=== PATIENT | female | born 1980 | race Caucasian/White ===

== ENCOUNTER 2016-06-11 13:34 | Emergency (ER) | payer MEDICAID ==
[~2016-06-11] VITALS: Ht 170.2 cm; Wt 64.0 kg
[~2016-06-11 13:34] MED LIST: CEPH500C3 PO; ZOVI800T13 PO
[2016-06-11 13:35] VITALS: BP 146/80; PULSE 72; RESP 16; TEMP 97.9; O2SAT 98
[2016-06-11 14:33] VITALS: BP 131/85; PULSE 73; RESP 18; O2SAT 98
[2016-06-11 14:59] LABS: AUTOMATED NEUTROPHIL # 2.9 TH/MM3 (1.8-7.7); BASOPHIL % 0.8 % (0.0-2.0); EOSINOPHIL # 0.1 TH/MM3 (0-0.4); HEMATOCRIT 35.7 % (35.0-46.0); HEMO FLAGS DIFF FINAL; LYMPH % 30.4 % (9.0-44.0); LYMPHOCYTE # 1.6 TH/MM3 (1.0-4.8); MEAN CELL VOLUME 93.7 FL (80.0-100.0); MEAN CORPUSCULAR HEMOGLOBIN 32.5 PG (27.0-34.0); MEAN CORPUSCULAR HGB CONC 34.7 % (32.0-36.0); MONO % 10.7 % (0.0-8.0); NEUT % 56.1 % (16.0-70.0); PLATELET COUNT 191 TH/MM3 (150-450); RED BLOOD COUNT 3.81 MIL/MM3 (4.00-5.30); RED CELL DISTRIBUTION WIDTH 12.9 % (11.6-17.2); WHITE BLOOD COUNT 5.1 TH/MM3 (4.0-11.0)
[2016-06-11 15:02] LABS: BLOOD, URINE SMALL (NEG); COMMENT (UR) CULT NOT INDICATED; CULTURE IF INDICATED CULT NOT INDICATED; GLUCOSE,URINE NEG (NEG); KETONE, URINE NEG (NEG); MUCUS URINE FEW /lpf (OCC); NITRITE,URINE NEG (NEG); PH, URINE 5.5 (5.0-8.5); SQUAMOUS EPITHELIAL CELL URINE 6 /hpf (0-5); URINE COLOR YELLOW (YELLW/STRAW)
--- NOTE | 2016-06-11 15:05 | PD ---
HPI Chief Complaint: Lump, Cyst, Hernia Time Seen by Provider: 14:59 Travel History International Travel<30 days: No Contact w/Intl Traveler<30days: No Traveled to known affect area: No History of Present Illness HPI 35-year-old female that presents to the ED for evaluation of possible hernia to her right side. Per patient she's had some pain and possible lumps to her right lower groin since yesterday. She denies any chest pain or shortness of breath. She denies any other injury. The patient the pain is more with touch. She denies any fevers chills or sweats. She denies any history of recent surgeries to her abdomen at that she has had fallopian tube ligation as well as gallbladder removal. She denies any bowel movement or urinary issues. She has not taken anything for this. She hasn't seen anybody for this. No allergies to medication. Per patient the pain is 6 out of 10. She denies secondary to having tubal ligation. Pain gets worse with touch but improves if no movement or touch is done. PFSH Past Medical History Medical History: Denies Significant Hx Patient Takes Glucophage: No Tetanus Vaccination: > 5 Years Influenza Vaccination: No ?: Not LMP: APRIL 2016 Tubal Ligation: Yes Past Surgical History Cholecystectomy: Yes Social History Alcohol Use: No Tobacco Use: Yes (/2 PPD) Substance Use: Yes Allergies-Medications (Allergen,Severity, Reaction): Coded Allergies: No Known Allergies (Verified , 06/11/16) Reported Meds & Prescriptions Reported Meds & Active Scripts Active No Active Prescriptions or Reported Medications Review of Systems General / Constitutional: No: Fever, Chills, Weight Gain, Weight Loss, Other Eyes: No: Diploplia, Blurred Vision, Photophobia, Drainage, Redness, Foreign Body Sensation, Pain, Tearing, Blind Spots, Visual changes, Blindness, Other HENT: No: Headaches, Vertigo, Lightheadedness, Sore Throat, Rhinitis, Rhinorrhea, Congestion, Nosebleed, Neck Stiffness, Neck Pain, Masses, Gingival Bleeding, Dental Difficulties, Ear Discharge, Earache, Other Cardiovascular: No: Chest Pain or Discomfort, Palpitations, Irregular Rhythm, Tachycardia, Diaphoresis, Syncope, Dyspnea on exertion, Varicosities, Edema, Cyanosis, Varicosities, Phlebitis, Claudication, Other Respiratory: No: Cough, Shortness of Breath, Wheezing, Sneezing, Orthopnea, Hemoptysis, Stridor, Night Sweats, Pleuritic Pain, Other Gastrointestinal: Positive: Other (hernia), No: Nausea, Vomiting, Diarrhea, Abdominal Pain, Hematemesis, Hematochezia, Constipation, Changes in Bowel Habits , Indigestion, Dysphagia, Loss of Appetite Genitourinary: No: Urgency, Frequency, Dysuria, Nocturia, Hematuria, Decreased Urinary Output, Oliguria, Hesitancy, Dribbling, Incontinence, Pelvic Pain, Flank Pain, Dyspareunia, Discharge, Dysmenorrhea, Menorrhagia, Metorrhagia, Vaginal Bleeding, Other Musculoskeletal: No: Myalgias, Arthralgias, Limited ROM, Weakness, Cramping, Edema, Pain, Atrophy, Other Skin: Positive Lumps, Positive Lesions, No Rash, No Itching, No Dryness, No Hives, No Change in Pigmentation, No Change in nails, No Alopecia, No Breast Lumps, No Breast Tenderness, No Breast Swelling, No Other Neurologic: No: Weakness, Dizziness, Syncope, Focal Abnormalities, Coordination Problem, Tremor, Ataxia, Headache, Change in Mentation, Slurred Speech, Paresthesia, Incontinence, Seizures, Sensory Disturbance, Other Psychiatric: No: Anxiety, Depression, Suicidal Ideations, Disorder of Thought, Mood Disorder, Substance Abuse, Homicidal Ideation, Other Endocrine: No: Heat Intolerance, Cold Intolerance, Polyuria, Polydipsia, Other Hematologic/Lymphatic: No: Easy Bruising, Lymph Node Enlargement, Other Physical Exam Narrative GENERAL: SKIN: Warm and dry. HEAD: Atraumatic. Normocephalic. EYES: Pupils equal and round. No scleral icterus. No injection or drainage. ENT: No nasal bleeding or discharge. Mucous membranes pink and moist. Tongue is midline. No uvula deviation. NECK: Trachea midline. No JVD. CARDIOVASCULAR: Regular rate and rhythm. RESPIRATORY: No accessory muscle use. Clear to auscultation. Breath sounds equal bilaterally. GASTROINTESTINAL: Abdomen soft, non-tender, nondistended. Hepatic and splenic margins not palpable. MUSCULOSKELETAL: Extremities without clubbing, cyanosis, or edema. No obvious deformities. Patient was examined with female nurse present. Patient has what appears to be inflamed lymph nodes on the right femoral area. Lungs appear to be mobile and slightly tender and not really reproducible. She does have a big one on the from all area but is not really mobile could be hernia. Skin around the area of the labs as well as on the genital area appears to be intact with no sign of infection. NEUROLOGICAL: Awake and alert. No obvious cranial nerve deficits. Motor grossly within normal limits. Five out of 5 muscle strength in the arms and legs. Normal speech. PSYCHIATRIC: Appropriate mood and affect; insight and judgment normal. Data Data Last Documented VS Vital Signs Date Time Temp Pulse Resp B/P Pulse Ox O2 Delivery O2 Flow Rate FiO2 06/11/16 14:33 73 18 131/85 98 Room Air 06/11/16 13:35 97.9 Orders Complete Blood Count With Diff (06/11/16 14:14) Basic Metabolic Panel (Bmp) (06/11/16 14:14) Urinalysis - C+S If Indicated (06/11/16 14:14) Ed Urine Pregnancytest Poc (06/11/16 14:14) Ct Abd/Pel W Iv Contrast(Rout) (06/11/16 14:25) Iohexol 350 Inj (Omnipaque 350 Inj) (06/11/16 16:04) Labs Laboratory Tests Test 06/11/16 06/11/16 14:30 14:40 Urine Color YELLOW Urine Turbidity HAZY Urine pH 5.5 Urine Specific [place] 1.012 Urine Protein NEG mg/dL Urine Glucose (UA) NEG mg/dL Urine Ketones NEG mg/dL Urine Occult Blood SMALL Urine Nitrite NEG Urine Bilirubin NEG Urine Urobilinogen LESS THAN 2.0 MG/DL Urine Leukocyte Esterase NEG Urine RBC 1 /hpf Urine WBC 4 /hpf Urine Squamous Epithelial 6 /hpf Cells Urine Mucus FEW /lpf Microscopic Urinalysis Comment CULT NOT INDICATED White Blood Count 5.1 TH/MM3 Red Blood Count 3.81 MIL/MM3 Hemoglobin 12.4 GM/DL Hematocrit 35.7 % Mean Corpuscular Volume 93.7 FL Mean Corpuscular Hemoglobin 32.5 PG Mean Corpuscular Hemoglobin 34.7 % Concent Red Cell Distribution Width 12.9 % Platelet Count 191 TH/MM3 Mean Platelet Volume 8.9 FL Neutrophils (%) (Auto) 56.1 % Lymphocytes (%) (Auto) 30.4 % Monocytes (%) (Auto) 10.7 % Eosinophils (%) (Auto) 2.0 % Basophils (%) (Auto) 0.8 % Neutrophils # (Auto) 2.9 TH/MM3 Lymphocytes # (Auto) 1.6 TH/MM3 Monocytes # (Auto) 0.5 TH/MM3 Eosinophils # (Auto) 0.1 TH/MM3 Basophils # (Auto) 0.0 TH/MM3 CBC Comment DIFF FINAL Differential Comment Sodium Level 139 MEQ/L Potassium Level 3.8 MEQ/L Chloride Level 107 MEQ/L Carbon Dioxide Level 27.0 MEQ/L Anion Gap 5 MEQ/L Blood Urea Nitrogen 9 MG/DL Creatinine 0.61 MG/DL Estimat Glomerular Filtration 112 ML/MIN Rate Random Glucose 91 MG/DL Calcium Level 8.6 MG/DL [facility] Medical Decision Making Medical Screen Exam Complete: Yes Emergency Medical Condition: Yes Medical Record Reviewed: Yes Interpretation(s) Last Impressions Abdomen/Pelvis CT 06/11/16 1425 Signed Impressions: Service Date/Time: Saturday, June 11, 2016 15:45 - CONCLUSION: 1. Stranding of fat in the right inguinal region with mildly enlarged lymph node. Findings most characteristic of a mild cellulitis. No inguinal hernia. No acute findings within the abdomen and pelvis. Ronald Vizcaino MD CBC & BMP Diagram 06/11/16 14:40 UA negative Differential Diagnosis Lymphadenopathy versus hernia versus normal exam Narrative Course 35-year-old female that presents to the ED for evaluation of possible hernia. Patient was properly examined and was found to have signs and symptoms which appear to be more consistent with lymphadenopathy but cannot completely rule out small hernia in the femoral area. She does have a lesion that appears to be bigger than just a lymph node but is not really reducible. At this time I recommend CT imaging to rule out any sign of acute hernia versus lymph nodes. Patient is agreeable with this. Labs and imaging showed possible inflamed lymph nodes with CT findings consistent with early cellulitis. No sign of hernia. No sign of other mass. Patient will be discharged home with prescription for Bactrim to cover for infection. On my physical exam and did not see any sign of cellulitis or infection but we'll treat CT findings. Recommendation is for patient to follow up with PCP. See ED worsening symptoms. Motrin or Tylenol for pain. Ice or warm compresses to the area as needed. Diagnosis Primary Impression: Lymph nodes enlarged Additional Impression: Cellulitis Qualified Code: L03.818 - Cellulitis of other specified site Patient Instructions: General Instructions Additional Instructions: Take medication as prescribed. Motrin for pain. Ice or warm compresses to the areas of pain as needed. Follow with PCP. See ED worsening symptoms. Med/Other Pt SpecificInfo: Prescription(s) given Scripts Sulfamethoxazole-Trimethoprim (Bactrim DS)800-160 Mg Tab1 Tab PO BID 10 Days Prov:Derek Del Rosario MD 06/11/16 Disposition: 01 DISCHARGE HOME Condition: Stable Amish Jensen Jun 11, 2016 15:05
[2016-06-11 15:22] LABS: POTASSIUM 3.8 MEQ/L (3.5-5.1)
[2016-06-11] MEDS ORDERED: IOHEXOL 350 MG/ML 10 ML VIAL (for RAD DIAG) IV ONE (16:04)
--- NOTE | 2016-06-11 16:24 | RADRPT ---
EXAM DATE/TIME: 06/11/2016 15:45 [facility] COMPARISON: No previous studies available for comparison. INDICATIONS : Evaluate for right hernia; pain. IV CONTRAST: 75 cc Omnipaque 350 (iohexol) IV ORAL CONTRAST: No oral contrast ingested. RADIATION DOSE: 3.98 CTDIvol (mGy) MEDICAL HISTORY : None SURGICAL HISTORY : Cholecystectomy. Tubal ligation. ENCOUNTER: Initial ACUITY: 1 day PAIN SCALE: 7/10 LOCATION: Right abdomen. TECHNIQUE: Volumetric scanning of the abdomen and pelvis was performed. Using automated exposure control and ad justment of the mA and/or kV according to patient size, radiation dose was kept as low as reasonably achievable to obtain optimal diagnostic quality images. FINDINGS: Lung bases are clear. No acute bony abnormalities. No acute findings in the liver, spleen, adrenals, kidneys or pancreas. Previous cholecystectomy. There is no inguinal hernia. There is some stranding of fat in the right inguinal region with a mildl y enlarged lymph node measuring up to 1.6 cm in diameter. This probably represents a focal area of ce llulitis. Left groin is intact. CONCLUSION: 1. Stranding of fat in the right inguinal region with mildly enlarged lymph node. Findings most terri cteristic of a mild cellulitis. No inguinal hernia. No acute findings within the abdomen and pelvis. Ronald Vizcaino MD on June 11, 2016 at 16:19 Board Certified Radiologist. This report was verified electronically.
[2016-06-11] MEDS ORDERED: BACT800T5 PO (16:31)
== END 2016-06-11 18:03 | disposition home or self-care (01) ==
LOC: NEPE 13:34
DX: R59.9 Enlarged lymph nodes, unspecified (principal)
CPT/HCPCS: 74177; 80048; 81001; 84703; 85025; 99283; Q9967